=== PATIENT | female | born 1970 | race Caucasian/White ===

== ENCOUNTER → 2018-03-20 | Outpatient (CLI) | payer OTHER ==
[~2018-03-20] MED LIST: ACETAMINOPHEN650 M5 PO; BENADRYL25 MG PO; NEO-POLYMYXIN-H10 ML; NOHOMEMEDICATIONS; PREDNISONE 20 M20 MG PO
== END ==
LOC: M.RAD 03-16 15:35
DX: N64.4 Mastodynia (principal); R92.2 Inconclusive mammogram

== ENCOUNTER → 2020-07-15 | Outpatient (CLI) | payer OTHER | LOC: M.CT 09:04 | PROVIDERS: ATTEND Internal Medicine Cardiovascular Disease | DX: Z13.6 Encounter for screening for cardiovascular disorders (principal) ==